=== PATIENT | female | born 1960 | race Hispanic/Latino ===

== ENCOUNTER 2024-01-14 11:33 | Inpatient (IN) | payer OTHER ==
[~2024-01-14] VITALS: Ht 147.3 cm; Wt 72.5 kg
[2024-01-14 12:31] LABS: BASOPHILS # (AUTO) 0.01 K/uL (0.00-0.20); BASOPHILS % (AUTO) 0.1 % (0.0-5.0); HEMATOCRIT 22.3 % (36-48); IMMATURE GRANULOCYTE ABSOLUTE 0.04 K/uL (0-1); LYMPHOCYTES # (AUTO) 0.6 K/uL (1.0-4.8); MEAN CORPUSCULAR HEMOGLOBIN 28.6 pg (27.0-33.0); MEAN CORPUSCULAR HGB CONC 33.2 g/dL (32.0-36.0); MEAN CORPUSCULAR VOLUME 86.1 fL (79-99); MONOCYTES # (AUTO) 0.4 K/uL (0.1-1.0); MONOCYTES % (AUTO) 4.7 % (3.0-13.0); NEUTROPHILS # (AUTO) 7.2 K/uL (1.8-7.7); NEUTROPHILS % (AUTO) 87.7 % (40.0-77.0); PLATELET COUNT (AUTO) 226 K/uL (130-400); RED BLOOD CELL COUNT(AUTO) 2.59 MIL/uL (4.00-5.50); WHITE BLOOD COUNT (AUTO) 8.2 K/uL (4.8-10.8)
[2024-01-14] MEDS: KETOROLAC 15MG/ML VIAL (15MG/ML) IV ONE (12:45)
[2024-01-14] MEDS: 0.9%NACL 1000ML 1,000 ML IV ONE (12:45)
[2024-01-14 12:46] LABS: ALBUMIN 3.2 g/dL (3.5-5.0); BILIRUBIN,TOTAL 0.3 mg/dL (0.2-1.0); CREATININE 6.1 mg/dL (0.5-1.5); POTASSIUM 4.7 mmol/L (3.5-5.1); TOTAL PROTEIN, SERUM 7.5 g/dL (6.0-8.3)
[2024-01-14 13:00] LABS: RAPID GROUP A STREP negative (NEGATIVE)
[2024-01-14 13:02] LABS: SARS-CoV-2, RNA, NAAT NEGATIVE SARS CoV-2 (NEGATIVE)
[2024-01-14 13:10] LABS: INFLUENZA TYPE A Negative For Type A (NEGATIVE)
[2024-01-14 13:14] LABS: INFLUENZA TYPE B Positive For Type B (NEGATIVE)
[2024-01-14 13:41] LABS: ABG BASE EXCESS -12.4 mmol/L (-2.0-3.0); ABG HCO3 13.9 mmol/L (21.0-28.0); ABG PCO2 34 mmHg (32-45); ABG PH 7.232 (7.35-7.450); PO2, ARTERIAL BG < 45.0 mmHg (83.0-108.0); VENT MODE, BG RA (ROOM AIR)
[2024-01-14] MEDS: OSELTAMIVIR PHOSPHATE 75 MG CAP PO ONE (14:03)
[2024-01-14] MEDS: INSULIN HUMULIN R 100 UNIT/ML 3ML IV ONE (14:05)
[2024-01-14 14:48] LABS: APPEARANCE,URINE CLOUDY (CLEAR); BILIRUBIN,URINE NEGATIVE (NEGATIVE); COLOR,URINE LIGHT-YELLOW (YELLOW); GLUCOSE, URINE (UA) >=1000 mg/dL (NEGATIVE); KETONES,URINE NEGATIVE (NEGATIVE); LEUKOCYTE ESTERASE ,URINE 250 Leu/uL (NEGATIVE); NITRATE,URINE 2+ (NEGATIVE); PH,URINE 5.5 (5.0-8.0); PROTEIN,URINE 200 mg/dL (NEGATIVE); UROBILINOGEN,URINE 0.2 mg/dL (0.2-1.0)
[2024-01-14 14:50] LABS: ADD UA MICROSCOPIC YES
[2024-01-14 14:56] LABS: BACTERIA,URINE MOD /HPF (None Seen); SQUAMOUS EPITHELIAL CELL,UR RARE /HPF (0-2); WBC CLUMP FEW /HPF (0-1); WBC,URINE 51-100 /HPF (0-1)
[2024-01-14] MEDS ORDERED: GLUCAGON 1MG KIT 1 MG ML IM PRN (15:30)
[2024-01-14] MEDS ORDERED: LACTULOSE 20 GM/30 ML UDCUP PO PRN (15:30)
[2024-01-14] MEDS ORDERED: GUAIFENESIN-DM 200/20 MG 10 ML PO PRN (15:30)
[2024-01-14] MEDS ORDERED: DEXTROSE 50%-WATER 50 ML DISP.SYRIN IV PRN (15:30)
[2024-01-14] MEDS ORDERED: NITROGLYCERIN 0.4 MG SL TAB SL PRN (15:30)
[2024-01-14] MEDS ORDERED: DIPHENHYDRAMINE HCL 25 MG CAPSULE PO PRN (15:30)
[2024-01-14] MEDS ORDERED: MAG/ALUM/SIMETH 30 ML UDCUP PO PRN (15:30)
[2024-01-14] MEDS ORDERED: CEFTRIAXONE 1G VIAL 1 GM in 0.9%NACL 50ML 50 ML IV SCH (15:30)
[2024-01-14 16:11] LABS: HEMOGLOBIN A1C 8.4 % (4.0-6.0)
[2024-01-14] MEDS: 0.9%NACL 1000ML 1,000 ML IV SCH (16:28)
[2024-01-14] MEDS ORDERED: INSULIN REGULAR 100 UNIT in 0.9%NACL 100ML IV SCH (16:30)
[2024-01-14] MEDS: CEFTRIAXONE 1G VIAL IVPB SCH (16:40)
[2024-01-14] MEDS ORDERED: METO25TA6 PO (18:06)
[2024-01-14] MEDS ORDERED: LINA5TAB PO (18:06)
[2024-01-14] MEDS ORDERED: PIOG45TA64 PO (18:06)
[2024-01-14] MEDS ORDERED: AMLO-258 PO (18:06)
[2024-01-14] MEDS ORDERED: GABA300S3 PO (18:06)
[2024-01-14 18:48] VITALS: BP 133/65; PULSE 65; RESP 18
[2024-01-14 19:00] VITALS: BP 124/68; PULSE 65; RESP 13
[2024-01-14 20:00] VITALS: BP 132/68; PULSE 65; RESP 13; O2SAT 99
[2024-01-14 20:24] LABS: BILIRUBIN,TOTAL 0.2 mg/dL (0.2-1.0); TOTAL PROTEIN, SERUM 6.9 g/dL (6.0-8.3)
[2024-01-14 21:00] VITALS: BP 124/62; PULSE 62; RESP 9
[2024-01-14] MEDS ORDERED: OSELTAMIVIR PHOSPHATE 75 MG CAP PO SCH (21:00)
[2024-01-14] MEDS: HEPARIN 5,000 UNIT VIAL SQ SCH (21:35)
[2024-01-14] MEDS: FAMOTIDINE 20MG VIAL IV SCH (21:35)
[2024-01-14 22:00] VITALS: BP 128/64; PULSE 66; RESP 15
[2024-01-14] MEDS: D5W-1/2 NS/20MEQ KCL 1,000 ML IV ONE (22:23)
[2024-01-14 23:00] VITALS: BP 130/62; PULSE 71; RESP 11
[2024-01-15] VITALS (49 sets, daily range): BP systolic 105–150; BP diastolic 55–89; PULSE 61–86; RESP 9–24; O2SAT 94–99
[2024-01-15 00:41] LABS: ALBUMIN 2.6 g/dL (3.5-5.0); BILIRUBIN,TOTAL 0.1 mg/dL (0.2-1.0); CREATININE 5.7 mg/dL (0.5-1.5); POTASSIUM 4.2 mmol/L (3.5-5.1)
[2024-01-15] MEDS: D5W-1/2 NS/20MEQ KCL 1,000 ML IV SCH (03:31)
[2024-01-15] MEDS: ACETAMINOPHEN WITH CODEINE 1 TAB TAB PO PRN (04:58)
[2024-01-15 05:07] LABS: BASOPHILS # (AUTO) 0.01 K/uL (0.00-0.20); BASOPHILS % (AUTO) 0.1 % (0.0-5.0); EOSINOPHILS # (AUTO) 0.07 K/uL (0.00-0.70); EOSINOPHILS % (AUTO) 0.9 % (0.0-8.0); HEMATOCRIT 21.8 % (36-48); IMMATURE GRANULOCYTE ABSOLUTE 0.03 K/uL (0-1); LYMPHOCYTES # (AUTO) 1.4 K/uL (1.0-4.8); LYMPHOCYTES % (AUTO) 18.5 % (21.0-51.0); MEAN CORPUSCULAR HEMOGLOBIN 28.8 pg (27.0-33.0); MEAN CORPUSCULAR VOLUME 87.2 fL (79-99); MONOCYTES # (AUTO) 0.5 K/uL (0.1-1.0); MONOCYTES % (AUTO) 6.5 % (3.0-13.0); NEUTROPHILS # (AUTO) 5.7 K/uL (1.8-7.7); NEUTROPHILS % (AUTO) 73.6 % (40.0-77.0); PLATELET COUNT (AUTO) 231 K/uL (130-400); RED CELL DISTRIBUTION WIDTH 14.1 % (11.0-15.5); WHITE BLOOD COUNT (AUTO) 7.8 K/uL (4.8-10.8)
[2024-01-15 05:43] LABS: ALBUMIN 2.9 g/dL (3.5-5.0); BILIRUBIN,TOTAL 0.2 mg/dL (0.2-1.0); CREATININE 5.7 mg/dL (0.5-1.5); MAGNESIUM 2.6 mg/dL (1.80-2.40); POTASSIUM 4.5 mmol/L (3.5-5.1); THYROID STIMULATING HORMONE 4.56 uIU/mL (0.36-3.74); TOTAL PROTEIN, SERUM 6.7 g/dL (6.0-8.3); URIC ACID 5.8 mg/dL (2.6-7.2)
[2024-01-15 05:56] LABS: % IRON SATURATION 27.3 % (22-44)
[2024-01-15] MEDS: INSULIN REGULAR, HUMAN 3ML 100 UNIT in 0.9%NACL 100ML 99 ML IV STA (08:19)
[2024-01-15] MEDS: OSELTAMIVIR PHOSPHATE 75 MG CAP PO SCH (08:19)
[2024-01-15 08:33] LABS: CREATININE 5.7 mg/dL (0.5-1.5); POTASSIUM 4.7 mmol/L (3.5-5.1)
[2024-01-15] MEDS ORDERED: OSELTAMIVIR PHOSPHATE 75 MG CAP PO SCH (09:00)
[2024-01-15] MEDS ORDERED: SODIUM CL 4MEQ/ML 30ML 154 MEQ in DEXTROSE 10%-WATER 961.5 ML IV SCH (11:00)
[2024-01-15] MEDS: DEXTROSE 10%-WATER 1,000 ML IV SCH (11:20)
[2024-01-15] MEDS: DOXYCYCLINE 100MG+NS 250ML 250 ML IV SCH (12:52)
[2024-01-15] MEDS: ZOSYN 3.375GM +NS 50ML IV SCH (12:52)
[2024-01-15] MEDS: INSULIN GLARGINE 100 UNITS/ML 10 ML VIAL SQ SCH (12:53)
[2024-01-15] MEDS ORDERED: SODIUM BICARBONATE 650 MG TAB PO SCH (14:00)
[2024-01-15 14:11] LABS: CREATININE 5.5 mg/dL (0.5-1.5); POTASSIUM 4.6 mmol/L (3.5-5.1)
[2024-01-15] MEDS: SODIUM BICARBONATE 650 MG TAB PO SCH (14:32)
[2024-01-15 14:38] LABS: MEAN CORPUSCULAR HGB CONC 33.2 g/dL (32.0-36.0); MEAN CORPUSCULAR VOLUME 87.4 fL (79-99); RED BLOOD CELL COUNT(AUTO) 2.38 MIL/uL (4.00-5.50); RED CELL DISTRIBUTION WIDTH 14.4 % (11.0-15.5); WHITE BLOOD COUNT (AUTO) 6.5 K/uL (4.8-10.8)
[2024-01-15 15:05] LABS: HEMATOCRIT 20.8 % (36-48)
[2024-01-15] MEDS ORDERED: IRON SUCROSE COMPLEX 100 MG/5 ML VIAL IV STA (15:28)
[2024-01-15] MEDS: IRON SUCROSE COMPLEX 300 MG+/NS 250ML IV ONE (16:21)
[2024-01-15] MEDS: INSULIN HUMULIN R 100 UNIT/ML 3ML SQ SCH (16:30)
[2024-01-15 18:32] LABS: CREATININE 5.7 mg/dL (0.5-1.5); POTASSIUM 4.6 mmol/L (3.5-5.1)
[2024-01-15] MEDS ORDERED: FUROSEMIDE 40MG VIAL IV SCH (21:00)
[2024-01-15] MEDS: PANTOPRAZOLE 40 MG/VIAL IVP SCH (21:06)
[2024-01-16] VITALS (8 sets, daily range): BP systolic 130–164; BP diastolic 68–79; PULSE 82–94; RESP 18–20; O2SAT 97–100
[2024-01-16] MEDS: FUROSEMIDE 40MG VIAL IV SCH (00:22)
[2024-01-16 05:25] LABS: HEMATOCRIT 22.3 % (36-48); MEAN CORPUSCULAR HEMOGLOBIN 28.4 pg (27.0-33.0); MEAN CORPUSCULAR HGB CONC 32.7 g/dL (32.0-36.0); MEAN CORPUSCULAR VOLUME 86.8 fL (79-99); RED BLOOD CELL COUNT(AUTO) 2.57 MIL/uL (4.00-5.50); RED CELL DISTRIBUTION WIDTH 14.4 % (11.0-15.5); WHITE BLOOD COUNT (AUTO) 7.1 K/uL (4.8-10.8)
[2024-01-16 05:49] LABS: ALBUMIN 2.5 g/dL (3.5-5.0); BILIRUBIN,TOTAL 0.3 mg/dL (0.2-1.0); CREATININE 6.1 mg/dL (0.5-1.5); MAGNESIUM 2.4 mg/dL (1.80-2.40); PHOSPHORUS 7.4 mg/dL (2.5-4.9); POTASSIUM 4.9 mmol/L (3.5-5.1)
[2024-01-16] MEDS: Vitamin B Complex/Vit C/Folic Acid PO SCH (10:06)
[2024-01-16] MEDS ORDERED: OSELTAMIVIR PHOSPHATE 75 MG CAP PO SCH (13:00)
[2024-01-16 15:33] LABS: ABG BASE EXCESS -10.7 mmol/L (-2.0-3.0); ABG HCO3 14.8 mmol/L (21.0-28.0); ABG OXYGEN SATURATION 94.4 % (95.0-99.0); ABG PCO2 32 mmHg (32-45); ABG PH 7.279 (7.35-7.450); VENT MODE, BG RA (ROOM AIR)
[2024-01-16] MEDS ORDERED: IRON SUCROSE COMPLEX 100 MG/5 ML VIAL IV ONE (16:00)
[2024-01-16] MEDS: SODIUM BICARB 50MEQ 50ML VIAL IV ONE (16:24)
[2024-01-16] MEDS: SODIUM BICARBONATE 650 MG TAB PO SCH (16:24)
[2024-01-16] MEDS ORDERED: SODIUM BICARBONATE 650 MG TAB PO SCH (17:00)
[2024-01-17] VITALS (25 sets, daily range): BP systolic 106–192; BP diastolic 59–96; PULSE 88–109; RESP 14–18; TEMP 98.3–98.4; O2SAT 96–97
[2024-01-17] MEDS: ONDANSETRON 4MG INJ IV PRN (02:55)
[2024-01-17 04:44] LABS: HEMATOCRIT 21.5 % (36-48); MEAN CORPUSCULAR HEMOGLOBIN 29.2 pg (27.0-33.0); PLATELET COUNT (AUTO) 164 K/uL (130-400); RED CELL DISTRIBUTION WIDTH 14.4 % (11.0-15.5); WHITE BLOOD COUNT (AUTO) 6.4 K/uL (4.8-10.8)
[2024-01-17 05:06] LABS: ALBUMIN 2.5 g/dL (3.5-5.0); BILIRUBIN,TOTAL 0.3 mg/dL (0.2-1.0); CREATININE 6.2 mg/dL (0.5-1.5); MAGNESIUM 2.3 mg/dL (1.80-2.40); PHOSPHORUS 7.7 mg/dL (2.5-4.9); POTASSIUM 4.2 mmol/L (3.5-5.1)
[2024-01-17 05:09] LABS: EOSINOPHILS % (MANUAL) 18 % (1-6); LYMPHOCYTES % (MANUAL) 16 % (22-44); MAN.DIFF COMMENT-IMPRESSION MANUAL DIFFERENTIAL; MONOCYTES % (MANUAL) 10 % (2-9); PLATELET MORPHOLOGY COMMENT ADEQUATE; SEGMENTED NEUTROPHILS % 56 % (40-70); TOTAL CELLS COUNTED 100; WBC MORPHOLOGY CONSISTENT W/DIFF
[2024-01-17] MEDS ORDERED: LIDOCAINE HCL 400MG/20ML VIAL ONE (14:24)
[2024-01-17] MEDS ORDERED: HEPARIN 1,000 UNIT VIAL ONE (14:24)
[2024-01-17 15:11] LABS: INR <= 0.93 (0.85-1.15); PROTHROMBIN TIME 10.7 SEC (9.6-11.6)
[2024-01-17 15:12] LABS: PARTIAL THROMBOPLASTIN TIME 34.2 SEC (26.3-35.5)
[2024-01-17] MEDS: HYDRALAZINE 20MG/ML VIAL IV PRN (15:47)
[2024-01-17 16:28] LABS: HEMATOCRIT 25.5 % (36-48)
[2024-01-17 16:41] LABS: % IRON SATURATION 38.1 % (22-44)
[2024-01-17 16:49] LABS: ALBUMIN 3.2 g/dL (3.5-5.0); CREATININE 6.1 mg/dL (0.5-1.5)
[2024-01-17 17:03] LABS: HIV 1&2 ANTIBODY Non-Reactive (Negative); HIV-1 p24 Antigen Non-Reactive (Negative)
[2024-01-17] MEDS: HEPARIN 5,000 UNIT VIAL IJ SCH (20:51)
[2024-01-17 22:22] LABS: HEPATITIS B SURFACE ANTIGEN Non-Reactive (Nonreactive)
[2024-01-18] VITALS (21 sets, daily range): BP systolic 131–177; BP diastolic 53–82; PULSE 82–98; RESP 14–18; TEMP 98.5–98.6; O2SAT 96–98
[2024-01-18] MEDS: AMLODIPINE 5 MG TAB PO ONE (00:59)
[2024-01-18 01:11] LABS: HEPATITIS B CORE AB TOTAL Non-Reactive (Nonreactive); HEPATITIS B SURFACE ANTIBODY Negative (Reactive)
[2024-01-18] MEDS: METOPROLOL TARTRATE 25 MG TAB PO ONE (01:30)
[2024-01-18 04:02] LABS: HEMATOCRIT 21.4 % (36-48); MEAN CORPUSCULAR HEMOGLOBIN 28.6 pg (27.0-33.0); MEAN CORPUSCULAR HGB CONC 33.6 g/dL (32.0-36.0); MEAN CORPUSCULAR VOLUME 84.9 fL (79-99); RED BLOOD CELL COUNT(AUTO) 2.52 MIL/uL (4.00-5.50); RED CELL DISTRIBUTION WIDTH 14.2 % (11.0-15.5); WHITE BLOOD COUNT (AUTO) 7.2 K/uL (4.8-10.8)
[2024-01-18 04:17] LABS: ALBUMIN 2.6 g/dL (3.5-5.0); BILIRUBIN,TOTAL 0.3 mg/dL (0.2-1.0); CREATININE 4.6 mg/dL (0.5-1.5); MAGNESIUM 2.1 mg/dL (1.80-2.40); POTASSIUM 3.2 mmol/L (3.5-5.1); TOTAL PROTEIN, SERUM 6.1 g/dL (6.0-8.3)
[2024-01-18] MEDS: METOPROLOL TARTRATE 25 MG TAB PO SCH (09:00)
[2024-01-18] MEDS: AMLODIPINE 5 MG TAB PO SCH (09:00)
[2024-01-18] MEDS: GABAPENTIN 300 MG CAPSULE PO SCH (10:10)
[2024-01-18] MEDS: KCL 20 MEQ ERTAB PO ONE (10:11)
[2024-01-18] MEDS ORDERED: LACTULOSE 20 GM/30 ML UDCUP PO PRN (11:30)
[2024-01-18] MEDS: PROMETHAZINE HCL 25 MG/ML 1ML AMPULE IM ONE (13:30)
[2024-01-18] MEDS ORDERED: HYDRALAZINE 25MG TABLET PO SCH (14:00)
[2024-01-18] MEDS ORDERED: ONDANSETRON 4MG INJ IVP PRN (23:00)
[2024-01-19] MEDS: FAMOTIDINE 20MG VIAL IV ONE (00:50)
[2024-01-19] MEDS: HYDROMORPHONE 0.5 MG SYG (0.5MG/0.5ML) IVP ONE (00:51)
[2024-01-19 04:00] VITALS: BP 169/68; PULSE 89; RESP 18
[2024-01-19 04:39] LABS: HEMATOCRIT 25.1 % (36-48); MEAN CORPUSCULAR HEMOGLOBIN 29.1 pg (27.0-33.0); MEAN CORPUSCULAR HGB CONC 32.7 g/dL (32.0-36.0); RED BLOOD CELL COUNT(AUTO) 2.82 MIL/uL (4.00-5.50); RED CELL DISTRIBUTION WIDTH 14.1 % (11.0-15.5); WHITE BLOOD COUNT (AUTO) 9.3 K/uL (4.8-10.8)
[2024-01-19 05:05] LABS: ALBUMIN 3.1 g/dL (3.5-5.0); BILIRUBIN,TOTAL 0.5 mg/dL (0.2-1.0); CREATININE 3.3 mg/dL (0.5-1.5); MAGNESIUM 1.9 mg/dL (1.80-2.40); POTASSIUM 3.7 mmol/L (3.5-5.1); TOTAL PROTEIN, SERUM 7.1 g/dL (6.0-8.3)
[2024-01-19 08:00] VITALS: BP 166/77; PULSE 88; RESP 17; O2SAT 96
[2024-01-19] MEDS: LISINOPRIL 40 MG TABLET PO SCH (08:24)
[2024-01-19] MEDS: EPOETIN ALFA-EPBX (NON-ESRD) 10,000 UNIT/ML VIAL SQ SCH (08:34)
[2024-01-19 12:00] VITALS: BP 151/61; PULSE 80; RESP 17
[2024-01-19 16:00] VITALS: BP 156/73; PULSE 84; RESP 17
[2024-01-19 19:10] VITALS: O2SAT 96
[2024-01-19 20:00] VITALS: BP 161/69; PULSE 84; RESP 16
[2024-01-20] VITALS (20 sets, daily range): BP systolic 141–173; BP diastolic 66–77; PULSE 73–94; RESP 16–20; TEMP 98.4–98.6; O2SAT 96
[2024-01-20] MEDS ORDERED: ONDANSETRON 4MG TABLET PO PRN (15:00)
[2024-01-20] MEDS: PANTOPRAZOLE 40 MG TAB DR PO SCH (20:01)
[2024-01-21] VITALS (7 sets, daily range): BP systolic 143–159; BP diastolic 59–72; PULSE 64–88; RESP 16–18; TEMP 99; O2SAT 96
[2024-01-21 04:22] LABS: HEMATOCRIT 22.9 % (36-48); MEAN CORPUSCULAR HGB CONC 32.8 g/dL (32.0-36.0); MEAN CORPUSCULAR VOLUME 88.4 fL (79-99); RED BLOOD CELL COUNT(AUTO) 2.59 MIL/uL (4.00-5.50); RED CELL DISTRIBUTION WIDTH 13.5 % (11.0-15.5); WHITE BLOOD COUNT (AUTO) 9.4 K/uL (4.8-10.8)
[2024-01-21 04:38] LABS: ALBUMIN 2.5 g/dL (3.5-5.0); BILIRUBIN,TOTAL 0.3 mg/dL (0.2-1.0); CREATININE 3.5 mg/dL (0.5-1.0); PHOSPHORUS 3.5 mg/dL (2.5-4.9); POTASSIUM 3.2 mmol/L (3.5-5.1)
[2024-01-21] MEDS: ACETAMINOPHEN 325 MG TAB PO PRN (04:46)
[2024-01-21] MEDS ORDERED: PANT40TA PO (12:47)
[2024-01-21] MEDS ORDERED: Folic Acid/Vitamin B Comp W-C PO (12:47)
[2024-01-21] MEDS ORDERED: INSLAN SQ (12:47)
[2024-01-21] MEDS ORDERED: LISI40TA9 PO (12:47)
[2024-01-22] VITALS: BP 141/62; PULSE 83; RESP 18
[2024-01-22 04:00] VITALS: BP 143/68; PULSE 78; RESP 18
[2024-01-22 04:07] LABS: HEMATOCRIT 22.4 % (36-48); MEAN CORPUSCULAR HEMOGLOBIN 29.1 pg (27.0-33.0); MEAN CORPUSCULAR HGB CONC 33.5 g/dL (32.0-36.0); MEAN CORPUSCULAR VOLUME 86.8 fL (79-99); RED BLOOD CELL COUNT(AUTO) 2.58 MIL/uL (4.00-5.50); RED CELL DISTRIBUTION WIDTH 13.7 % (11.0-15.5); WHITE BLOOD COUNT (AUTO) 9.3 K/uL (4.8-10.8)
[2024-01-22 04:29] LABS: ALBUMIN 2.6 g/dL (3.5-5.0); BILIRUBIN,TOTAL 0.3 mg/dL (0.2-1.0); CREATININE 4.4 mg/dL (0.5-1.0); PHOSPHORUS 4.3 mg/dL (2.5-4.9); POTASSIUM 3.3 mmol/L (3.5-5.1); TOTAL PROTEIN, SERUM 6.3 g/dL (6.0-8.3)
[2024-01-22] MEDS ORDERED: LIDOCAINE HCL 1% MDV 50ML VIAL ONE (07:14)
[2024-01-22 07:55] VITALS: BP 136/69; PULSE 86; RESP 18
[2024-01-22 08:25] VITALS: O2SAT 95
[2024-01-22 11:37] VITALS: BP 138/68; PULSE 70; RESP 18
== END 2024-01-22 15:40 | disposition home or self-care (01) | DRG 673 ==
LOC: EDH 11:33 → EDHIP 11:34 → 2CH 18:29 → 2DH 01-16 00:07 → 4CH 01-18 13:25
PROVIDERS: ADMIT Internal Medicine; ATTEND Internal Medicine
PROC: 5A1D70Z Performance of Urinary Filtration, Intermittent, Less than 6 Hours Per Day (ICD-10-PCS; 2024-01-17)
PROC: 5A1D70Z Performance of Urinary Filtration, Intermittent, Less than 6 Hours Per Day (ICD-10-PCS; 2024-01-18)
PROC: 05HY33Z Insertion of Infusion Device into Upper Vein, Percutaneous Approach (ICD-10-PCS; 2024-01-20)
PROC: 5A1D70Z Performance of Urinary Filtration, Intermittent, Less than 6 Hours Per Day (ICD-10-PCS; 2024-01-20)
PROC: 0JH63XZ Insertion of Tunneled Vascular Access Device into Chest Subcutaneous Tissue and Fascia, Percutaneous Approach (ICD-10-PCS; principal; 2024-01-22)
PROC: 02H633Z Insertion of Infusion Device into Right Atrium, Percutaneous Approach (ICD-10-PCS; 2024-01-22)
PROC: B5181ZA Fluoroscopy of Superior Vena Cava using Low Osmolar Contrast, Guidance (ICD-10-PCS; 2024-01-22)
PROC: B548ZZA Ultrasonography of Superior Vena Cava, Guidance (ICD-10-PCS; 2024-01-22)
PROC: 0JPT3XZ Removal of Tunneled Vascular Access Device from Trunk Subcutaneous Tissue and Fascia, Percutaneous Approach (ICD-10-PCS; 2024-01-22)
DX: N17.9 Acute kidney failure, unspecified (principal); E11.10 Type 2 diabetes mellitus with ketoacidosis without coma; J10.00 Influenza due to other identified influenza virus with unspecified type of pneumonia; J96.01 Acute respiratory failure with hypoxia; J15.69 Pneumonia due to other Gram-negative bacteria; E87.1 Hypo-osmolality and hyponatremia; N30.00 Acute cystitis without hematuria; D62 Acute posthemorrhagic anemia; I12.0 Hypertensive chronic kidney disease with stage 5 chronic kidney disease or end stage renal disease; J90 Pleural effusion, not elsewhere classified; N18.6 End stage renal disease; E11.22 Type 2 diabetes mellitus with diabetic chronic kidney disease; D63.1 Anemia in chronic kidney disease; J10.1 Influenza due to other identified influenza virus with other respiratory manifestations; B96.89 Other specified bacterial agents as the cause of diseases classified elsewhere; E66.9 Obesity, unspecified; E78.00 Pure hypercholesterolemia, unspecified; E87.70 Fluid overload, unspecified; R62.7 Adult failure to thrive; Z90.710 Acquired absence of both cervix and uterus; Z99.2 Dependence on renal dialysis; Z68.33 Body mass index [BMI] 33.0-33.9, adult; Z79.899 Other long term (current) drug therapy; Z79.84 Long term (current) use of oral hypoglycemic drugs
CPT/HCPCS: 36415; 36430; 36558; 36589; 36600; 71045; 76700; 77001; 78278; 80048; 80053; 80061; 81001; 82010; 82040; 82306; 82565; 82728; 82803; 82948; 83036; 83540; 83550; 83605; 83690; 83735; 84100; 84145; 84443; 84520; 84550; 85014; 85018; 85025; 85027; 85610; 85730; 86701; 86704; 86706; 86850; 86900; 86901; 86923; 87040; 87077; 87088; 87186; 87340; 87390; 87635; 87804; 87880; 90935; 93005; A9512; C1750; C1769; C9113; G0378; J0360; J0696; J1170; J1644; J1756; J1815; J1885; J1940; J2405; J2543; J3480; J3490; J7030; J7050; J7131; P9016; C1894; Q5106

== ENCOUNTER 2024-02-27 20:59 | Emergency (ER) | payer OTHER ==
[~2024-02-27] VITALS: Ht 152.4 cm; Wt 75.3 kg
[~2024-02-27 20:59] MED LIST: AMLO-258 PO; Folic Acid/Vitamin B Comp W-C PO; GABA300S3 PO; INSLAN SQ; LINA5TAB PO; LISI40TA9 PO; METO25TA6 PO; PANT40TA PO; PIOG45TA64 PO
[2024-02-27 23:03] LABS: BASOPHILS # (AUTO) 0.02 K/uL (0.00-0.20); BASOPHILS % (AUTO) 0.3 % (0.0-5.0); EOSINOPHILS # (AUTO) 0.26 K/uL (0.00-0.70); EOSINOPHILS % (AUTO) 3.7 % (0.0-8.0); HEMATOCRIT 24.1 % (36-48); IMMATURE GRANULOCYTE ABSOLUTE 0.03 K/uL (0-1); LYMPHOCYTES # (AUTO) 1.2 K/uL (1.0-4.8); LYMPHOCYTES % (AUTO) 16.5 % (21.0-51.0); MEAN CORPUSCULAR HEMOGLOBIN 28.8 pg (27.0-33.0); MEAN CORPUSCULAR HGB CONC 32.8 g/dL (32.0-36.0); MONOCYTES # (AUTO) 0.6 K/uL (0.1-1.0); MONOCYTES % (AUTO) 8.5 % (3.0-13.0); NEUTROPHILS # (AUTO) 4.9 K/uL (1.8-7.7); NEUTROPHILS % (AUTO) 70.6 % (40.0-77.0); PLATELET COUNT (AUTO) 195 K/uL (130-400); RED BLOOD CELL COUNT(AUTO) 2.74 MIL/uL (4.00-5.50); RED CELL DISTRIBUTION WIDTH 13.5 % (11.0-15.5)
[2024-02-27 23:13] LABS: CREATININE 6.2 mg/dL (0.5-1.0)
[2024-02-27 23:15] LABS: INR 0.94 (0.85-1.15); PROTHROMBIN TIME 11.1 SEC (9.6-11.6)
[2024-02-27 23:16] LABS: PARTIAL THROMBOPLASTIN TIME 33.2 SEC (26.3-35.5)
[2024-02-27 23:18] LABS: ALBUMIN 3.5 g/dL (3.5-5.0); BILIRUBIN,TOTAL 0.3 mg/dL (0.2-1.0); TOTAL PROTEIN, SERUM 7.8 g/dL (6.0-8.3)
[2024-02-28] MEDS ORDERED: HYDR25TA PO (00:06)
[2024-02-28] MEDS: FUROSEMIDE 100MG VIAL IVP ONE (00:20)
[2024-02-28 01:35] VITALS: BP 166/73; PULSE 66; RESP 16; O2SAT 98
== END 2024-02-28 01:40 | disposition home or self-care (01) ==
LOC: EDH 20:59
DX: I10 Essential (primary) hypertension (principal); I12.0 Hypertensive chronic kidney disease with stage 5 chronic kidney disease or end stage renal disease; E11.22 Type 2 diabetes mellitus with diabetic chronic kidney disease; N18.6 End stage renal disease; E11.65 Type 2 diabetes mellitus with hyperglycemia; D63.1 Anemia in chronic kidney disease; Z99.2 Dependence on renal dialysis; E78.00 Pure hypercholesterolemia, unspecified; Z79.4 Long term (current) use of insulin; Z79.84 Long term (current) use of oral hypoglycemic drugs; Z79.899 Other long term (current) drug therapy
CPT/HCPCS: 99285; 71045; 84484; 80053; 85025; 85610; 85730; 36415; 93005; 96374; J1940

== ENCOUNTER 2024-04-06 11:42 | Inpatient (IN) | payer OTHER ==
[~2024-04-06] VITALS: Ht 132.1 cm; Wt 67.4 kg
[~2024-04-06 11:42] MED LIST changes: +HYDR25TA PO
[2024-04-06 12:09] LABS: BASOPHILS # (AUTO) 0.02 K/uL (0.00-0.20); BASOPHILS % (AUTO) 0.3 % (0.0-5.0); EOSINOPHILS # (AUTO) 0.29 K/uL (0.00-0.70); EOSINOPHILS % (AUTO) 4.7 % (0.0-8.0); IMMATURE GRANULOCYTE ABSOLUTE 0.03 K/uL (0-1); LYMPHOCYTES # (AUTO) 0.9 K/uL (1.0-4.8); LYMPHOCYTES % (AUTO) 14.6 % (21.0-51.0); MEAN CORPUSCULAR HEMOGLOBIN 29.3 pg (27.0-33.0); MEAN CORPUSCULAR HGB CONC 32.5 g/dL (32.0-36.0); MEAN CORPUSCULAR VOLUME 90.2 fL (79-99); MONOCYTES # (AUTO) 0.4 K/uL (0.1-1.0); MONOCYTES % (AUTO) 6.1 % (3.0-13.0); NEUTROPHILS # (AUTO) 4.6 K/uL (1.8-7.7); NEUTROPHILS % (AUTO) 73.8 % (40.0-77.0); PLATELET COUNT (AUTO) 182 K/uL (130-400); RED BLOOD CELL COUNT(AUTO) 2.66 MIL/uL (4.00-5.50); RED CELL DISTRIBUTION WIDTH 14.3 % (11.0-15.5); WHITE BLOOD COUNT (AUTO) 6.2 K/uL (4.8-10.8)
[2024-04-06 12:25] LABS: ALBUMIN 3.8 g/dL (3.5-5.0); BILIRUBIN,TOTAL 0.4 mg/dL (0.2-1.0); POTASSIUM 5.3 mmol/L (3.5-5.1); TOTAL PROTEIN, SERUM 7.8 g/dL (6.0-8.3)
[2024-04-06 12:49] LABS: CREATININE 8.5 mg/dL (0.5-1.0)
[2024-04-06 12:54] LABS: APPEARANCE,URINE CLEAR (CLEAR); BILIRUBIN,URINE NEGATIVE (NEGATIVE); COLOR,URINE YELLOW (YELLOW); GLUCOSE, URINE (UA) 70 mg/dL (NEGATIVE); KETONES,URINE NEGATIVE (NEGATIVE); LEUKOCYTE ESTERASE ,URINE NEGATIVE Leu/uL (NEGATIVE); NITRATE,URINE NEGATIVE (NEGATIVE); PROTEIN,URINE 600 mg/dL (NEGATIVE); UROBILINOGEN,URINE 0.2 mg/dL (0.2-1.0)
[2024-04-06 12:55] LABS: ADD UA MICROSCOPIC YES
[2024-04-06 13:03] LABS: BACTERIA,URINE MANY /HPF (None Seen); MUCUS,URINE RARE LPF (None Seen); OTHER CASTS, URINE 2 /LPF (None Seen); SQUAMOUS EPITHELIAL CELL,UR RARE /HPF (0-2); TRANSITIONAL EPI CELLS,URINE RARE /HPF (None Seen); WBC,URINE 26-50 /HPF (0-1)
[2024-04-06] MEDS: ONDANSETRON 4MG INJ IVP ONE (19:01)
[2024-04-06] MEDS: MORPHINE 4 MG SYG IVP ONE (19:01)
[2024-04-06] MEDS: KAYEXALATE 15GM/60ML PO NR (19:01)
[2024-04-06] MEDS: ALBUTEROL 0.083% 2.5 MG/3 ML INH IH SCH (19:18)
[2024-04-06 19:24] VITALS: PULSE 97; RESP 17
[2024-04-06 19:25] VITALS: PULSE 97; RESP 17; O2SAT 97
[2024-04-06] MEDS: CALCIUM GLUC 1GM 1 GM in 0.9%NACL 100ML 100 ML IV ONE (19:26)
[2024-04-06] MEDS: DEXTROSE 50%-WATER 50 ML DISP.SYRIN IV ONE (19:53)
[2024-04-06] MEDS: NIFEDIPINE 10 MG CAP PO ONE (19:54)
[2024-04-06] MEDS: DEXTROSE 50%-WATER 25 GM/50 ML VIAL IV ONE (19:54)
[2024-04-06] MEDS: INSULIN HUMULIN R 100 UNIT/ML 3ML IV ONE (20:01)
[2024-04-06] MEDS ORDERED: ROCURONIUM BROMIDE 10MG/1ML 5ML VL IV ONE (20:54)
[2024-04-06] MEDS ORDERED: AMIODARONE 150MG VIAL IV ONE (20:54)
[2024-04-06] MEDS: INSULIN HUMULIN R 100 UNIT/ML 3ML ONE (21:01)
[2024-04-06] MEDS ORDERED: GLUCAGON 1MG KIT 1 MG ML IM PRN (23:30)
[2024-04-06] MEDS: ONDANSETRON 4MG INJ IV PRN (23:41)
[2024-04-07] VITALS (29 sets, daily range): BP systolic 139–168; BP diastolic 47–81; PULSE 77–114; RESP 14–35; O2SAT 92–95
[2024-04-07] MEDS: HYDRALAZINE 20MG/ML VIAL IV PRN (00:13)
[2024-04-07] MEDS ORDERED: ASCO500T19 PO (02:54)
[2024-04-07] MEDS ORDERED: CHOL100046 PO (02:54)
[2024-04-07] MEDS ORDERED: VITA1CAP85 PO (02:54)
[2024-04-07] MEDS ORDERED: HYDR25TA67 PO (02:54)
[2024-04-07] MEDS: ACETAMINOPHEN 325 MG TAB PO PRN (04:30)
[2024-04-07 06:01] LABS: BASOPHILS # (AUTO) 0.02 K/uL (0.00-0.20); BASOPHILS % (AUTO) 0.3 % (0.0-5.0); EOSINOPHILS # (AUTO) 0.05 K/uL (0.00-0.70); EOSINOPHILS % (AUTO) 0.8 % (0.0-8.0); HEMATOCRIT 22.2 % (36-48); IMMATURE GRANULOCYTE ABSOLUTE 0.06 K/uL (0-1); LYMPHOCYTES # (AUTO) 0.6 K/uL (1.0-4.8); LYMPHOCYTES % (AUTO) 9.5 % (21.0-51.0); MEAN CORPUSCULAR HEMOGLOBIN 29.2 pg (27.0-33.0); MEAN CORPUSCULAR HGB CONC 31.1 g/dL (32.0-36.0); MEAN CORPUSCULAR VOLUME 94.1 fL (79-99); MONOCYTES # (AUTO) 0.4 K/uL (0.1-1.0); MONOCYTES % (AUTO) 6.2 % (3.0-13.0); NEUTROPHILS % (AUTO) 82.2 % (40.0-77.0); PLATELET COUNT (AUTO) 161 K/uL (130-400); RED BLOOD CELL COUNT(AUTO) 2.36 MIL/uL (4.00-5.50); RED CELL DISTRIBUTION WIDTH 14.6 % (11.0-15.5); WHITE BLOOD COUNT (AUTO) 6.1 K/uL (4.8-10.8)
[2024-04-07 06:15] LABS: ALBUMIN 3.3 g/dL (3.5-5.0); BILIRUBIN,TOTAL 0.3 mg/dL (0.2-1.0); MAGNESIUM 2.7 mg/dL (1.80-2.40); POTASSIUM 4.9 mmol/L (3.5-5.1); TOTAL PROTEIN, SERUM 6.7 g/dL (6.0-8.3)
[2024-04-07] MEDS ORDERED: GENTAMICIN SULFATE 0.3% 3.5 GM OPHTH OINT OS SCH (06:15)
[2024-04-07] MEDS ORDERED: CETIRIZINE HCL 5 MG TABLET PO SCH (06:15)
[2024-04-07 06:18] LABS: CREATININE 8.7 mg/dL (0.5-1.0)
[2024-04-07] MEDS: INSULIN HUMULIN R 100 UNIT/ML 3ML SQ SCH (06:39)
[2024-04-07 08:13] LABS: INR <= 0.93 (0.85-1.15)
[2024-04-07 08:14] LABS: PARTIAL THROMBOPLASTIN TIME 30.5 SEC (26.3-35.5)
[2024-04-07] MEDS: GENTAMICIN SULFATE 0.3% 5ML DROPS OS SCH (08:57)
[2024-04-07] MEDS: HYDRALAZINE 25MG TABLET PO SCH (08:58)
[2024-04-07] MEDS: AMLODIPINE 5 MG TAB PO SCH (08:58)
[2024-04-07] MEDS: METOPROLOL TARTRATE 25 MG TAB PO SCH (08:58)
[2024-04-07] MEDS: VITAMIN B COMPLEX 1 CAPSULE PO SCH (08:58)
[2024-04-07] MEDS: CETIRIZINE HCL 5 MG TABLET PO SCH (08:58)
[2024-04-07] MEDS: FUROSEMIDE 40MG VIAL IVP SCH (13:40)
[2024-04-07] MEDS: FAMOTIDINE 20MG TAB PO SCH (20:34)
[2024-04-08] VITALS (10 sets, daily range): BP systolic 137–163; BP diastolic 57–75; PULSE 60–92; RESP 16–20; O2SAT 91–93
[2024-04-08] MEDS: CEFTRIAXONE 1G VIAL IVPB SCH (00:08)
[2024-04-08 04:12] LABS: BASOPHILS # (AUTO) 0.01 K/uL (0.00-0.20); BASOPHILS % (AUTO) 0.2 % (0.0-5.0); EOSINOPHILS # (AUTO) 0.33 K/uL (0.00-0.70); EOSINOPHILS % (AUTO) 6.1 % (0.0-8.0); HEMATOCRIT 21.3 % (36-48); IMMATURE GRANULOCYTE ABSOLUTE 0.01 K/uL (0-1); LYMPHOCYTES # (AUTO) 1.2 K/uL (1.0-4.8); LYMPHOCYTES % (AUTO) 21.6 % (21.0-51.0); MEAN CORPUSCULAR HEMOGLOBIN 29.3 pg (27.0-33.0); MEAN CORPUSCULAR HGB CONC 31.5 g/dL (32.0-36.0); MONOCYTES # (AUTO) 0.5 K/uL (0.1-1.0); MONOCYTES % (AUTO) 9.5 % (3.0-13.0); NEUTROPHILS # (AUTO) 3.4 K/uL (1.8-7.7); NEUTROPHILS % (AUTO) 62.4 % (40.0-77.0); PLATELET COUNT (AUTO) 170 K/uL (130-400); RED BLOOD CELL COUNT(AUTO) 2.29 MIL/uL (4.00-5.50); RED CELL DISTRIBUTION WIDTH 14.8 % (11.0-15.5); WHITE BLOOD COUNT (AUTO) 5.4 K/uL (4.8-10.8)
[2024-04-08 04:24] LABS: % IRON SATURATION 17.9 % (22-44)
[2024-04-08 04:34] LABS: BILIRUBIN,TOTAL 0.3 mg/dL (0.2-1.0); MAGNESIUM 2.8 mg/dL (1.80-2.40); PHOSPHORUS 5.8 mg/dL (2.5-4.9); TOTAL PROTEIN, SERUM 6.4 g/dL (6.0-8.3)
[2024-04-08] MEDS: (Cholecalciferol (Vitamin D3) (Vitamin D3) 25 MCG) PO SCH (09:00)
[2024-04-08] MEDS: ASCORBIC ACID 500 MG TAB PO SCH (10:10)
[2024-04-08 10:13] LABS: HEMATOCRIT 21.9 % (36-48)
[2024-04-08] MEDS: ACETAMINOPHEN 325 MG TAB PO PRN (10:17)
[2024-04-08] MEDS ORDERED: LACTULOSE 20 GM/30 ML UDCUP PO PRN (11:30)
[2024-04-08] MEDS: LACTULOSE 20 GM/30 ML UDCUP PO ONE (12:02)
[2024-04-08] MEDS: CYANOCOBALAMIN (VITAMIN B-12) 1,000 MCG TABLET PO ONE (12:02)
[2024-04-08] MEDS ORDERED: IRON SUCROSE COMPLEX 100 MG/5 ML VIAL IVP SCH (16:30)
[2024-04-08] MEDS: EPOETIN ALFA-EPBX (NON-ESRD) 10,000 UNIT/ML VIAL SQ SCH (18:50)
[2024-04-08] MEDS: IRON SUCROSE COMPLEX 300 MG+/NS 250ML IV SCH (18:50)
[2024-04-08] MEDS: IRON POLYSACCHARIDES COMPLEX 150 MG CAPSULE PO SCH (21:17)
[2024-04-09] VITALS (24 sets, daily range): BP systolic 135–163; BP diastolic 46–80; PULSE 76–95; RESP 18–22; TEMP 98.1–98.3; O2SAT 98–99
[2024-04-09 04:19] LABS: BASOPHILS # (AUTO) 0.01 K/uL (0.00-0.20); BASOPHILS % (AUTO) 0.2 % (0.0-5.0); EOSINOPHILS # (AUTO) 0.41 K/uL (0.00-0.70); EOSINOPHILS % (AUTO) 6.4 % (0.0-8.0); HEMATOCRIT 23.3 % (36-48); IMMATURE GRANULOCYTE ABSOLUTE 0.04 K/uL (0-1); LYMPHOCYTES # (AUTO) 0.8 K/uL (1.0-4.8); LYMPHOCYTES % (AUTO) 12.5 % (21.0-51.0); MEAN CORPUSCULAR HEMOGLOBIN 29.4 pg (27.0-33.0); MEAN CORPUSCULAR HGB CONC 30.9 g/dL (32.0-36.0); MEAN CORPUSCULAR VOLUME 95.1 fL (79-99); MONOCYTES # (AUTO) 0.5 K/uL (0.1-1.0); MONOCYTES % (AUTO) 8.2 % (3.0-13.0); NEUTROPHILS # (AUTO) 4.6 K/uL (1.8-7.7); NEUTROPHILS % (AUTO) 72.1 % (40.0-77.0); PLATELET COUNT (AUTO) 151 K/uL (130-400); RED BLOOD CELL COUNT(AUTO) 2.45 MIL/uL (4.00-5.50); RED CELL DISTRIBUTION WIDTH 14.5 % (11.0-15.5); WHITE BLOOD COUNT (AUTO) 6.4 K/uL (4.8-10.8)
[2024-04-09 04:38] LABS: INR 0.94 (0.85-1.15); PROTHROMBIN TIME 11.1 SEC (9.6-11.6)
[2024-04-09 04:39] LABS: PARTIAL THROMBOPLASTIN TIME 35.7 SEC (26.3-35.5)
[2024-04-09 04:43] LABS: ALBUMIN 3.3 g/dL (3.5-5.0); BILIRUBIN,TOTAL 0.3 mg/dL (0.2-1.0); MAGNESIUM 2.8 mg/dL (1.80-2.40); PHOSPHORUS 6.6 mg/dL (2.5-4.9); POTASSIUM 4.5 mmol/L (3.5-5.1); TOTAL PROTEIN, SERUM 6.9 g/dL (6.0-8.3)
[2024-04-09 05:06] LABS: CREATININE 9.2 mg/dL (0.5-1.0)
[2024-04-09] MEDS: CYANOCOBALAMIN (VITAMIN B-12) 1,000 MCG TABLET PO SCH (09:30)
[2024-04-09] MEDS ORDERED: LIDOCAINE HCL 400MG/20ML VIAL ONE (10:20)
[2024-04-09] MEDS ORDERED: HEPARIN 10,000 UNIT/10ML (1,000 UNIT/ML) VIAL ONE (10:20)
[2024-04-09] MEDS ORDERED: HEPARIN 1,000 UNIT VIAL ONE (11:15)
[2024-04-09] MEDS ORDERED: COMPOUND IV MISC 1 EACH IVSOLN MISC PRN (11:30)
[2024-04-09] MEDS: HEPARIN 5,000 UNIT VIAL IV SCH (18:28)
[2024-04-10] VITALS (20 sets, daily range): BP systolic 120–169; BP diastolic 63–75; PULSE 66–83; RESP 18–20; TEMP 98.3–98.8; O2SAT 96–99
[2024-04-10 03:47] LABS: BASOPHILS # (AUTO) 0.02 K/uL (0.00-0.20); BASOPHILS % (AUTO) 0.4 % (0.0-5.0); EOSINOPHILS % (AUTO) 1.8 % (0.0-8.0); HEMATOCRIT 21.8 % (36-48); IMMATURE GRANULOCYTE ABSOLUTE 0.03 K/uL (0-1); LYMPHOCYTES # (AUTO) 0.7 K/uL (1.0-4.8); LYMPHOCYTES % (AUTO) 13.6 % (21.0-51.0); MEAN CORPUSCULAR HEMOGLOBIN 29.4 pg (27.0-33.0); MEAN CORPUSCULAR HGB CONC 31.7 g/dL (32.0-36.0); MEAN CORPUSCULAR VOLUME 92.8 fL (79-99); MONOCYTES # (AUTO) 0.5 K/uL (0.1-1.0); MONOCYTES % (AUTO) 9.9 % (3.0-13.0); NEUTROPHILS % (AUTO) 73.7 % (40.0-77.0); PLATELET COUNT (AUTO) 162 K/uL (130-400); RED BLOOD CELL COUNT(AUTO) 2.35 MIL/uL (4.00-5.50); RED CELL DISTRIBUTION WIDTH 14.4 % (11.0-15.5); WHITE BLOOD COUNT (AUTO) 5.5 K/uL (4.8-10.8)
[2024-04-10 04:10] LABS: ALBUMIN 2.9 g/dL (3.5-5.0); BILIRUBIN,TOTAL 0.2 mg/dL (0.2-1.0); CREATININE 6.6 mg/dL (0.5-1.0); MAGNESIUM 2.3 mg/dL (1.80-2.40); TOTAL PROTEIN, SERUM 6.4 g/dL (6.0-8.3)
[2024-04-10 08:27] LABS: HEMATOCRIT 22.7 % (36-48)
[2024-04-10] MEDS: EPOETIN ALFA-EPBX (NON-ESRD) 10,000 UNIT/ML VIAL SQ ONE (17:08)
[2024-04-11] VITALS (23 sets, daily range): BP systolic 122–148; BP diastolic 56–72; PULSE 70–87; RESP 16–20; TEMP 98–98.6; O2SAT 93–94
[2024-04-11 03:39] LABS: BASOPHILS # (AUTO) 0.02 K/uL (0.00-0.20); BASOPHILS % (AUTO) 0.3 % (0.0-5.0); EOSINOPHILS # (AUTO) 0.05 K/uL (0.00-0.70); EOSINOPHILS % (AUTO) 0.8 % (0.0-8.0); HEMATOCRIT 25.1 % (36-48); IMMATURE GRANULOCYTE ABSOLUTE 0.06 K/uL (0-1); LYMPHOCYTES % (AUTO) 14.4 % (21.0-51.0); MEAN CORPUSCULAR HEMOGLOBIN 28.9 pg (27.0-33.0); MEAN CORPUSCULAR HGB CONC 30.7 g/dL (32.0-36.0); MEAN CORPUSCULAR VOLUME 94.4 fL (79-99); MONOCYTES # (AUTO) 0.8 K/uL (0.1-1.0); MONOCYTES % (AUTO) 11.3 % (3.0-13.0); NEUTROPHILS # (AUTO) 4.8 K/uL (1.8-7.7); NEUTROPHILS % (AUTO) 72.3 % (40.0-77.0); NUCLEATED RED BLOOD CELLS 0.3 % (0.0-0.19); PLATELET COUNT (AUTO) 173 K/uL (130-400); RED BLOOD CELL COUNT(AUTO) 2.66 MIL/uL (4.00-5.50); RED CELL DISTRIBUTION WIDTH 14.2 % (11.0-15.5); WHITE BLOOD COUNT (AUTO) 6.7 K/uL (4.8-10.8)
[2024-04-11 03:51] LABS: BILIRUBIN,TOTAL 0.3 mg/dL (0.2-1.0); CREATININE 5.1 mg/dL (0.5-1.0); MAGNESIUM 2.1 mg/dL (1.80-2.40); POTASSIUM 3.6 mmol/L (3.5-5.1); TOTAL PROTEIN, SERUM 6.8 g/dL (6.0-8.3)
[2024-04-11 13:21] LABS: HEPATITIS Bs ANTIGEN SCREEN P Negative (Negative)
[2024-04-11] MEDS ORDERED: ACETAMINOPHEN WITH CODEINE 1 TAB TAB PO PRN (13:30)
[2024-04-11] MEDS: ACETAMINOPHEN WITH CODEINE 1 TAB TAB PO PRN (14:44)
[2024-04-12] VITALS (7 sets, daily range): BP systolic 115–136; BP diastolic 56–65; PULSE 78–91; RESP 16–20; O2SAT 95
[2024-04-12 04:22] LABS: HEMATOCRIT 23.3 % (36-48); MEAN CORPUSCULAR HEMOGLOBIN 29.6 pg (27.0-33.0); MEAN CORPUSCULAR HGB CONC 31.3 g/dL (32.0-36.0); MEAN CORPUSCULAR VOLUME 94.3 fL (79-99); NUCLEATED RED BLOOD CELLS 0.5 % (0.0-0.19); RED BLOOD CELL COUNT(AUTO) 2.47 MIL/uL (4.00-5.50); RED CELL DISTRIBUTION WIDTH 14.1 % (11.0-15.5); WHITE BLOOD COUNT (AUTO) 12.1 K/uL (4.8-10.8)
[2024-04-12 04:43] LABS: ALBUMIN 2.9 g/dL (3.5-5.0); BILIRUBIN,TOTAL 0.4 mg/dL (0.2-1.0); CREATININE 3.8 mg/dL (0.5-1.0); POTASSIUM 3.6 mmol/L (3.5-5.1); TOTAL PROTEIN, SERUM 6.7 g/dL (6.0-8.3)
[2024-04-12] MEDS: PROMETHAZINE HCL 25 MG/ML 1ML AMPULE IM ONE ×2 (20:52)
[2024-04-13] VITALS (8 sets, daily range): BP systolic 129–147; BP diastolic 53–61; PULSE 79–103; RESP 18–20; O2SAT 91–96
[2024-04-13 04:17] LABS: ALBUMIN 2.7 g/dL (3.5-5.0); BILIRUBIN,TOTAL 0.4 mg/dL (0.2-1.0); CREATININE 5.7 mg/dL (0.5-1.0); PHOSPHORUS 4.5 mg/dL (2.5-4.9); POTASSIUM 3.5 mmol/L (3.5-5.1); TOTAL PROTEIN, SERUM 6.5 g/dL (6.0-8.3)
[2024-04-13 04:26] LABS: HEMATOCRIT 22.2 % (36-48); MEAN CORPUSCULAR HEMOGLOBIN 29.3 pg (27.0-33.0); MEAN CORPUSCULAR HGB CONC 31.5 g/dL (32.0-36.0); MEAN CORPUSCULAR VOLUME 92.9 fL (79-99); NUCLEATED RED BLOOD CELLS 0.4 % (0.0-0.19); PLATELET COUNT (AUTO) 209 K/uL (130-400); RED BLOOD CELL COUNT(AUTO) 2.39 MIL/uL (4.00-5.50); RED CELL DISTRIBUTION WIDTH 14.3 % (11.0-15.5); WHITE BLOOD COUNT (AUTO) 14.2 K/uL (4.8-10.8)
[2024-04-13 05:15] LABS: EOSINOPHILS % (MANUAL) 1 % (1-6); LYMPHOCYTES % (MANUAL) 9 % (22-44); MONOCYTES % (MANUAL) 4 % (2-9); SEGMENTED NEUTROPHILS % 86 % (40-70); TOTAL CELLS COUNTED 100
[2024-04-13 05:16] LABS: MAN.DIFF COMMENT-IMPRESSION MANUAL DIFFERENTIAL; PLATELET MORPHOLOGY COMMENT ADEQUATE; WBC MORPHOLOGY SMUDGE CELLS 1+
[2024-04-14] VITALS (21 sets, daily range): BP systolic 114–143; BP diastolic 54–79; PULSE 67–93; RESP 16–20; TEMP 97.7–97.8; O2SAT 92–93
[2024-04-14 03:49] LABS: HEMATOCRIT 23.3 % (36-48); MEAN CORPUSCULAR HEMOGLOBIN 28.9 pg (27.0-33.0); MEAN CORPUSCULAR HGB CONC 30.9 g/dL (32.0-36.0); MEAN CORPUSCULAR VOLUME 93.6 fL (79-99); NUCLEATED RED BLOOD CELLS 0.2 % (0.0-0.19); RED BLOOD CELL COUNT(AUTO) 2.49 MIL/uL (4.00-5.50); RED CELL DISTRIBUTION WIDTH 14.1 % (11.0-15.5); WHITE BLOOD COUNT (AUTO) 15.3 K/uL (4.8-10.8)
[2024-04-14 04:16] LABS: ALBUMIN 2.5 g/dL (3.5-5.0); BILIRUBIN,TOTAL 0.3 mg/dL (0.2-1.0); CREATININE 6.8 mg/dL (0.5-1.0); MAGNESIUM 2.2 mg/dL (1.80-2.40); PHOSPHORUS 5.1 mg/dL (2.5-4.9); POTASSIUM 3.7 mmol/L (3.5-5.1); TOTAL PROTEIN, SERUM 6.6 g/dL (6.0-8.3)
[2024-04-15] VITALS (9 sets, daily range): BP systolic 106–140; BP diastolic 52–66; PULSE 70–97; RESP 16–20; O2SAT 95–96
[2024-04-15 03:46] LABS: CREATININE 4.3 mg/dL (0.5-1.0); MAGNESIUM 1.9 mg/dL (1.80-2.40); PHOSPHORUS 2.8 mg/dL (2.5-4.9); POTASSIUM 3.5 mmol/L (3.5-5.1)
[2024-04-15 04:06] LABS: BASOPHILS # (AUTO) 0.03 K/uL (0.00-0.20); BASOPHILS % (AUTO) 0.2 % (0.0-5.0); EOSINOPHILS # (AUTO) 0.15 K/uL (0.00-0.70); HEMATOCRIT 22.5 % (36-48); IMMATURE GRANULOCYTE ABSOLUTE 0.43 K/uL (0-1); LYMPHOCYTES # (AUTO) 0.7 K/uL (1.0-4.8); LYMPHOCYTES % (AUTO) 4.3 % (21.0-51.0); MEAN CORPUSCULAR HEMOGLOBIN 29.5 pg (27.0-33.0); MEAN CORPUSCULAR HGB CONC 31.6 g/dL (32.0-36.0); MEAN CORPUSCULAR VOLUME 93.4 fL (79-99); MONOCYTES # (AUTO) 1.5 K/uL (0.1-1.0); MONOCYTES % (AUTO) 9.6 % (3.0-13.0); NEUTROPHILS # (AUTO) 12.3 K/uL (1.8-7.7); NUCLEATED RED BLOOD CELLS 0.2 % (0.0-0.19); PLATELET COUNT (AUTO) 216 K/uL (130-400); RED BLOOD CELL COUNT(AUTO) 2.41 MIL/uL (4.00-5.50); RED CELL DISTRIBUTION WIDTH 14.6 % (11.0-15.5); WHITE BLOOD COUNT (AUTO) 15.1 K/uL (4.8-10.8)
[2024-04-15] MEDS: EPOETIN ALFA-EPBX (NON-ESRD) 10,000 UNIT/ML VIAL SQ SCH (20:40)
[2024-04-15] MEDS: ONDANSETRON 4MG INJ IVP PRN (20:46)
[2024-04-16] VITALS (25 sets, daily range): BP systolic 105–163; BP diastolic 55–88; PULSE 75–130; RESP 16–20; TEMP 98–98.4; O2SAT 95–96
[2024-04-16] MEDS: PROMETHAZINE HCL 25 MG/ML 1ML AMPULE IM ONE (00:40)
[2024-04-16] MEDS: SODIUM CHLORIDE 3% FOR INHALATION 4 ML/AMP VIAL.NEB IH ONE ×3 (01:24→14:31)
[2024-04-16] MEDS: ACETAMINOPHEN 650 MG SUPPOSITORY RC ONE (03:16)
[2024-04-16 04:02] LABS: HEMATOCRIT 26.6 % (36-48); MEAN CORPUSCULAR HEMOGLOBIN 29.2 pg (27.0-33.0); MEAN CORPUSCULAR HGB CONC 30.8 g/dL (32.0-36.0); MEAN CORPUSCULAR VOLUME 94.7 fL (79-99); NUCLEATED RED BLOOD CELLS 0.3 % (0.0-0.19); RED BLOOD CELL COUNT(AUTO) 2.81 MIL/uL (4.00-5.50); RED CELL DISTRIBUTION WIDTH 14.6 % (11.0-15.5); WHITE BLOOD COUNT (AUTO) 16.9 K/uL (4.8-10.8)
[2024-04-16 04:24] LABS: ALBUMIN 2.8 g/dL (3.5-5.0); BILIRUBIN,TOTAL 0.4 mg/dL (0.2-1.0); CREATININE 5.6 mg/dL (0.5-1.0); POTASSIUM 3.3 mmol/L (3.5-5.1); TOTAL PROTEIN, SERUM 7.3 g/dL (6.0-8.3)
[2024-04-16] MEDS ORDERED: PROCHLORPERAZINE 10MG/2ML INJ IV PRN (12:00)
[2024-04-16] MEDS ORDERED: VANCOMYCIN PROTOCOL PER PHARMACY IV SCH (12:30)
[2024-04-16] MEDS: METOPROLOL TARTRATE 1 MG/ML 5ML VIAL IV ONE (12:46)
[2024-04-16] MEDS: CEFEPIME HCL 1 GM VIAL IVPB SCH (14:27)
[2024-04-16] MEDS: VANCOMYCIN 1.5 GM/250 ML BAG 250 ML IV ONE (14:55)
[2024-04-17] VITALS (8 sets, daily range): BP systolic 95–117; BP diastolic 51–75; PULSE 93–107; RESP 20; O2SAT 96
[2024-04-17 04:01] LABS: HEMATOCRIT 26.5 % (36-48); MEAN CORPUSCULAR HEMOGLOBIN 29.3 pg (27.0-33.0); MEAN CORPUSCULAR HGB CONC 31.3 g/dL (32.0-36.0); MEAN CORPUSCULAR VOLUME 93.6 fL (79-99); NUCLEATED RED BLOOD CELLS 0.4 % (0.0-0.19); RED BLOOD CELL COUNT(AUTO) 2.83 MIL/uL (4.00-5.50); RED CELL DISTRIBUTION WIDTH 14.9 % (11.0-15.5); WHITE BLOOD COUNT (AUTO) 24.9 K/uL (4.8-10.8)
[2024-04-17 04:38] LABS: CREATININE 3.7 mg/dL (0.5-1.0); MAGNESIUM 1.8 mg/dL (1.80-2.40); PHOSPHORUS 1.8 mg/dL (2.5-4.9); POTASSIUM 3.4 mmol/L (3.5-5.1)
[2024-04-18] VITALS (33 sets, daily range): BP systolic 74–122; BP diastolic 40–66; PULSE 75–137; RESP 12–20; TEMP 98.1–98.5; O2SAT 95–98
[2024-04-18] MEDS: 0.9% NACL 500ML IV.SOLN 500 ML IV ONE (04:58)
[2024-04-18 08:54] LABS: ABG BASE EXCESS -2.4 mmol/L (-2.0-3.0); ABG HCO3 22.3 mmol/L (21.0-28.0); ABG OXYGEN SATURATION 93.8 % (95.0-99.0); ABG PCO2 38 mmHg (32-45); ABG PH 7.386 (7.35-7.450); CARBON MONOXIDE 1.1; DEVICE COMMENT RBGISSELA; HHb 6.1; PO2, ARTERIAL BG 66.2 mmHg (83.0-108.0); VENT MODE, BG RA (ROOM AIR)
[2024-04-18 09:05] LABS: HEMATOCRIT 31.9 % (36-48); MEAN CORPUSCULAR HEMOGLOBIN 29.4 pg (27.0-33.0); MEAN CORPUSCULAR HGB CONC 31.3 g/dL (32.0-36.0); MEAN CORPUSCULAR VOLUME 93.8 fL (79-99); NUCLEATED RED BLOOD CELLS 0.8 % (0.0-0.19); PLATELET COUNT (AUTO) 292 K/uL (130-400)
[2024-04-18 09:08] LABS: WHITE BLOOD COUNT (AUTO) 69.8 K/uL (4.8-10.8)
[2024-04-18] MEDS ORDERED: 0.9% NACL 250ML 250 ML IV SCH (09:30)
[2024-04-18 09:34] LABS: ALBUMIN 1.7 g/dL (3.5-5.0); CARBON DIOXIDE 24 mmol/L (21-32); CHLORIDE 91 mmol/L (101-111); CREATININE 5.4 mg/dL (0.5-1.0); GLOMERULAR FILTR. RATE CALC 8 mL/min (>90); GLUCOSE,RANDOM 216 mg/dL (70-105); PHOSPHORUS 3.3 mg/dL (2.5-4.9); SODIUM SERUM 130 mmol/L (136-145); UREA NITROGEN, BLOOD 42 mg/dL (7-18)
[2024-04-18] MEDS: FLUCONAZOLE 200 MG/NS 100 ML 100 ML ONE (09:35)
[2024-04-18] MEDS: FLUCONAZOLE 200 MG/NS 100 ML 100 ML IV SCH (09:35)
[2024-04-18 09:38] LABS: ALANINE AMINOTRANSFERASE 12 U/L (12-78); ASPARTATE AMINOTRANSFERASE 18 U/L (10-37); BILIRUBIN,TOTAL 0.6 mg/dL (0.2-1.0); TOTAL PROTEIN, SERUM 6.1 g/dL (6.0-8.3)
[2024-04-18] MEDS: MEROPENEM 500 MG in 0.9%NACL 100ML 100 ML IV SCH (09:39)
[2024-04-18 09:57] LABS: AMMONIA < 10 umol/L (11-32)
[2024-04-18 10:52] LABS: BAND NEUTROPHILS % (MANUAL) 1 % (0-2); LYMPHOCYTES % (MANUAL) 4 % (22-44); MAN.DIFF COMMENT-IMPRESSION MANUAL DIFFERENTIAL; MONOCYTES % (MANUAL) 14 % (2-9); SEGMENTED NEUTROPHILS % 81 % (40-70); TOTAL CELLS COUNTED 100
[2024-04-18 10:54] LABS: PLATELET MORPHOLOGY COMMENT ADEQUATE; WBC MORPHOLOGY TOXIC GRANULATION 1+
[2024-04-18] MEDS ORDERED: COMPOUND PO MISCELLANEOUS 1 EACH MISC MISC PRN (12:30)
[2024-04-18] MEDS ORDERED: COMPOUND PO REF 1 EA BTL MISC PRN (13:00)
[2024-04-18] MEDS: VANCOMYCIN HCL 125 MG/ 2.5 ML SOLN ORAL.SYG PO SCH (13:13)
[2024-04-18] MEDS: MIDODRINE HCL 5 MG TABLET PO SCH (13:13)
[2024-04-18] MEDS ORDERED: VANCOMYCIN 500MG+NS 100ML 100 ML IV SCH (16:00)
[2024-04-18] MEDS: METOPROLOL TARTRATE 1 MG/ML 5ML VIAL IV ONE ×3 (19:00→19:22)
[2024-04-18] MEDS: 0.9%NACL 1000ML 1,000 ML IV ONE (19:26)
[2024-04-18 19:28] LABS: ABG BASE EXCESS -3.9 mmol/L (-2.0-3.0); ABG HCO3 20.2 mmol/L (21.0-28.0); ABG PCO2 33 mmHg (32-45); CARBON MONOXIDE 0.5; PO2, ARTERIAL BG 105.3 mmHg (83.0-108.0); VENT MODE, BG NC (ROOM AIR)
[2024-04-18] MEDS: PHENYLEPHRINE HCL 10 MG in 0.9% NACL 250ML 250 ML IV PRN (20:30)
[2024-04-18] MEDS ORDERED: 0.9% NACL 500ML IV.SOLN 500 ML IV SCH (21:00)
[2024-04-18] MEDS ORDERED: AMIODARONE 900MG VIAL 360 MG in DEXTROSE 5%-WATER 200 ML IV SCH (21:00)
[2024-04-18] MEDS ORDERED: NOREPINEPHRIN 4MG/NS 250ML 250 ML IV SCH (22:00)
[2024-04-19] VITALS (154 sets, daily range): BP systolic 25–211; BP diastolic 16–119; PULSE 43–159; RESP 15–48; O2SAT 92–99
[2024-04-19] MEDS ORDERED: PHARMACY COMMUNICATION MISC SCH ×3 (00:30→12:00)
[2024-04-19] MEDS: VANCOMYCIN HCL 125 MG/ 2.5 ML SOLN ORAL.SYG PO STA (02:18)
[2024-04-19 06:02] LABS: AMMONIA 11 umol/L (11-32); THYROID STIMULATING HORMONE 4.28 uIU/mL (0.36-3.74)
[2024-04-19 08:24] LABS: MEAN CORPUSCULAR HEMOGLOBIN 30.5 pg (27.0-33.0); MEAN CORPUSCULAR HGB CONC 28.7 g/dL (32.0-36.0); MEAN CORPUSCULAR VOLUME 106.3 fL (79-99); NUCLEATED RED BLOOD CELLS 5.2 % (0.0-0.19); PLATELET COUNT (AUTO) 134 K/uL (130-400); RED BLOOD CELL COUNT(AUTO) 3.67 MIL/uL (4.00-5.50); RED CELL DISTRIBUTION WIDTH 17.4 % (11.0-15.5)
[2024-04-19 08:51] LABS: ABG BASE EXCESS -31.4 mmol/L (-2.0-3.0); ABG HCO3 3.5 mmol/L (21.0-28.0); ABG OXYGEN SATURATION 87.3 % (95.0-99.0); ABG PCO2 27 mmHg (32-45); ABG PH 6.732 (7.35-7.450); DEVICE COMMENT RBASHLEY; HHb 12.6; PO2, ARTERIAL BG 87.6 mmHg (83.0-108.0); VENT MODE, BG NRB (ROOM AIR)
[2024-04-19 08:52] LABS: WHITE BLOOD COUNT (AUTO) 114.9 K/uL (4.8-10.8)
[2024-04-19 08:58] LABS: CREATININE 5.7 mg/dL (0.5-1.0)
[2024-04-19] MEDS: AMIODARONE 150MG VIAL 150 MG in DEXTROSE 5%-WATER 100 ML IV SCH (09:07)
[2024-04-19] MEDS: FENTANYL 1000MCG+NS 100ML 100 ML IV ONE (09:20)
[2024-04-19] MEDS ORDERED: SODIUM BICARB 50MEQ 50ML VIAL IV ONE (09:30)
[2024-04-19 09:37] LABS: BAND NEUTROPHILS % (MANUAL) 15 % (0-2); EOSINOPHILS % (MANUAL) 1 % (1-6); LYMPHOCYTES % (MANUAL) 7 % (22-44); MAN.DIFF COMMENT-IMPRESSION MANUAL DIFFERENTIAL; METAMYELOCYTES % 2 % (0-0); MONOCYTES % (MANUAL) 8 % (2-9); OTHER CELLS,MANUAL % 1 (0-0); REACTIVE LYMPHOCYTES 1 % (0-0); SEGMENTED NEUTROPHILS % 65 % (40-70); TOTAL CELLS COUNTED 100
[2024-04-19 09:38] LABS: PLATELET MORPHOLOGY COMMENT ADEQUATE
[2024-04-19 09:39] LABS: WBC MORPHOLOGY IMMATURE G
[2024-04-19] MEDS ORDERED: NOREPINEPHRINE 16MG/NS 250ML PREMIX IV SCH (10:00)
[2024-04-19] MEDS ORDERED: VASOPRESSIN 40 UNITS in 0.9%NACL 50ML 40 ML IV SCH (10:00)
[2024-04-19 10:05] LABS: ALBUMIN 1.6 g/dL (3.5-5.0); BILIRUBIN,DIRECT 0.2 mg/dL (0.0-0.3); BILIRUBIN,TOTAL 0.5 mg/dL (0.2-1.0); THYROID STIMULATING HORMONE 4.34 uIU/mL (0.36-3.74); TOTAL PROTEIN, SERUM 5.4 g/dL (6.0-8.3)
[2024-04-19] MEDS: HYDROCORTISONE SOD SUCCINATE 100 MG/2 ML VIAL ONE (10:17)
[2024-04-19] MEDS: SODIUM BICARB 50MEQ 50ML VIAL IV ONE ×4 (10:18→19:02)
[2024-04-19] MEDS: SODIUM BICARB 8.4% 50ML SYRING 150 MEQ in DEXTROSE 5%-WATER 1,000 ML IVP SCH (10:18)
[2024-04-19] MEDS: MEROPENEM 500 MG in 0.9%NACL 100ML 100 ML IV SCH (10:18)
[2024-04-19] MEDS: SODIUM BICARB 50MEQ 50ML VIAL 200 ML ONE (10:26)
[2024-04-19 11:37] LABS: ABG BASE EXCESS -17.1 mmol/L (-2.0-3.0); ABG HCO3 9.1 mmol/L (21.0-28.0); ABG OXYGEN SATURATION 99.4 % (95.0-99.0); ABG PCO2 23 mmHg (32-45); ABG PH 7.211 (7.35-7.450); CARBON MONOXIDE 0.3; HHb 0.6; PO2, ARTERIAL BG 358.8 mmHg (83.0-108.0); VENT MODE, BG AC (ROOM AIR)
[2024-04-19] MEDS: EPINEPHRINE 1 MG/ML 30ML VIAL IJ ONE (14:26)
[2024-04-19] MEDS ORDERED: FENTANYL 1000MCG+NS 100ML 100 ML IV SCH (14:30)
[2024-04-19] MEDS ORDERED: METRONIDAZOLE 500MG/100ML BAG IV SCH (14:30)
[2024-04-19 14:49] LABS: ABG BASE EXCESS -19.6 mmol/L (-2.0-3.0); ABG HCO3 8.4 mmol/L (21.0-28.0); ABG OXYGEN SATURATION 97.8 % (95.0-99.0); ABG PCO2 27 mmHg (32-45); ABG PH 7.108 (7.35-7.450); CARBON MONOXIDE 0.3; HHb 2.2; PO2, ARTERIAL BG 141.4 mmHg (83.0-108.0); VENT MODE, BG AC (ROOM AIR)
[2024-04-19] MEDS ORDERED: CALCIUM GLUC 1GM/10ML VIAL IVPB SCH (15:00)
[2024-04-19] MEDS ORDERED: MIDAZOLAM 50MG-0.9% NS 50ML 50 ML IV PRN (15:00)
[2024-04-19] MEDS: HYDROCORTISONE SOD SUCCINATE 100 MG/2 ML VIAL IV SCH (15:02)
[2024-04-19] MEDS: HEPARIN 5,000 UNIT VIAL SQ SCH (15:06)
[2024-04-19] MEDS: CALCIUM GLUC 1GM 1 GM in 0.9%NACL 100ML 100 ML IV SCH (15:16)
[2024-04-19] MEDS: METRONIDAZOLE 500MG/100ML BAG 100 ML IVPB SCH (15:18)
[2024-04-19] MEDS: CEFTAZIDIME PENTAHYDRATE 1 GM/VIAL IVPB SCH (15:50)
[2024-04-19] MEDS: DEXTROSE 50%-WATER 50 ML DISP.SYRIN IV PRN (16:03)
[2024-04-19] MEDS: VANCOMYCIN HCL 250/5ML SOLN ORAL.SYG PO SCH (17:34)
[2024-04-19 18:34] LABS: ABG BASE EXCESS -23.3 mmol/L (-2.0-3.0); ABG HCO3 5.5 mmol/L (21.0-28.0); ABG OXYGEN SATURATION 94.7 % (95.0-99.0); ABG PCO2 20 mmHg (32-45); ABG PH 7.047 (7.35-7.450); CARBON MONOXIDE 0; HHb 5.3; PO2, ARTERIAL BG 102.3 mmHg (83.0-108.0); VENT MODE, BG AC VC (ROOM AIR)
[2024-04-19] MEDS: EPINEPHRINE PF 1MG (1:1,000) 10 MG in 0.9% NACL 250ML 250 ML IV SCH (19:03)
[2024-04-19] MEDS: AMIODARONE 900MG VIAL 540 MG in DEXTROSE 5%-WATER 300 ML IV SCH (19:04)
[2024-04-19] MEDS: NOREPINEPHRINE BITARTRATE IV SCH (19:07)
[2024-04-19] MEDS: NACL 0.9% IV SCH (19:07)
[2024-04-19] MEDS: PHENYLEPHRINE HCL 100 MG in 0.9% NACL 250ML 250 ML IV SCH (19:08)
[2024-04-19] MEDS: VASOPRESSIN 40 UNITS in 0.9%NACL 50ML 40 ML IV SCH (19:09)
[2024-04-19] MEDS ORDERED: SODIUM BICARBONATE 650 MG TAB PO SCH (21:00)
== END 2024-04-19 20:55 | DRG 304 ==
LOC: EDH 11:42 → EDHIP 11:43 → 2BH 04-07 01:02 → 2DH 04-07 18:41 → 2CV 04-18 19:56
PROVIDERS: ADMIT Internal Medicine; ATTEND Internal Medicine
PROC: 05HY33Z Insertion of Infusion Device into Upper Vein, Percutaneous Approach (ICD-10-PCS; principal; 2024-04-09)
PROC: B543ZZA Ultrasonography of Right Jugular Veins, Guidance (ICD-10-PCS; 2024-04-09)
PROC: 5A1D70Z Performance of Urinary Filtration, Intermittent, Less than 6 Hours Per Day (ICD-10-PCS; 2024-04-09)
PROC: 5A1D70Z Performance of Urinary Filtration, Intermittent, Less than 6 Hours Per Day (ICD-10-PCS; 2024-04-10)
PROC: 5A1D70Z Performance of Urinary Filtration, Intermittent, Less than 6 Hours Per Day (ICD-10-PCS; 2024-04-11)
PROC: 5A1D70Z Performance of Urinary Filtration, Intermittent, Less than 6 Hours Per Day (ICD-10-PCS; 2024-04-14)
PROC: 5A1D70Z Performance of Urinary Filtration, Intermittent, Less than 6 Hours Per Day (ICD-10-PCS; 2024-04-16)
PROC: 5A1D70Z Performance of Urinary Filtration, Intermittent, Less than 6 Hours Per Day (ICD-10-PCS; 2024-04-18)
DX: I16.1 Hypertensive emergency (principal); A41.9 Sepsis, unspecified organism; G92.8 Other toxic encephalopathy; N18.6 End stage renal disease; J96.00 Acute respiratory failure, unspecified whether with hypoxia or hypercapnia; R65.21 Severe sepsis with septic shock; N17.9 Acute kidney failure, unspecified; A04.72 Enterocolitis due to Clostridium difficile, not specified as recurrent; E87.1 Hypo-osmolality and hyponatremia; E87.20 Acidosis, unspecified; J81.1 Chronic pulmonary edema; J90 Pleural effusion, not elsewhere classified; I13.11 Hypertensive heart and chronic kidney disease without heart failure, with stage 5 chronic kidney disease, or end stage renal disease; E87.5 Hyperkalemia; H54.62 Unqualified visual loss, left eye, normal vision right eye; D64.9 Anemia, unspecified; E11.65 Type 2 diabetes mellitus with hyperglycemia; E78.00 Pure hypercholesterolemia, unspecified; Z66 Do not resuscitate; E11.22 Type 2 diabetes mellitus with diabetic chronic kidney disease; E83.42 Hypomagnesemia; E86.1 Hypovolemia; E87.70 Fluid overload, unspecified; E87.8 Other disorders of electrolyte and fluid balance, not elsewhere classified; I48.91 Unspecified atrial fibrillation; Z59.86 Financial insecurity; Z79.4 Long term (current) use of insulin; Z90.710 Acquired absence of both cervix and uterus; Z91.199 Patient's noncompliance with other medical treatment and regimen due to unspecified reason; Z99.2 Dependence on renal dialysis
CPT/HCPCS: 31500; 36415; 36556; 36600; 36620; 36800; 70450; 70544; 70547; 70551; 71045; 74018; 76770; 77001; 80048; 80053; 80076; 81001; 82010; 82140; 82435; 82607; 82728; 82746; 82803; 82947; 82948; 83540; 83550; 83605; 83735; 84100; 84132; 84145; 84295; 84443; 84484; 85014; 85018; 85025; 85027; 85610; 85651; 85730; 86140; 86704; 86706; 86850; 86900; 86901; 87040; 87070; 87076; 87077; 87088; 87186; 87324; 87340; 90935; 92950; 93005; 94002; 94640; 96365; 96375; 99291; C1751; C1752; G0378; J0171; J0282; J0360; J0612; J0692; J0696; J0713; J1450; J1644; J1720; J1756; J1815; J1940; J2185; J2270; J2371; J2405; J2550; J3010; J3370; J3475; J3490; J7050; J7060; J7070; A9900; C1894; Q5106